=== PATIENT | female | born 1945 | race Caucasian/White ===

== ENCOUNTER 2018-03-03 14:19 | Inpatient (IN) | payer OTHER ==
[2018-03-03] MEDS ORDERED: NS 1,000 ML IV ONE (15:18)
[2018-03-03] MEDS ORDERED: ONDANSETRON 4 MG/2 ML VIAL IVP ONE (15:19)
[2018-03-03] MEDS ORDERED: HYDROmorphONE/DILAUDID 2 MG/ML INJ IVP ONE (15:20)
--- NOTE | 2018-03-03 15:23 | EDPHY ---
H & P Stated Complaint: R abd/side pain; has UTI dx'd yestrday,hasn't started antibx Time Seen by Provider: 03/03/18 14:59 HPI/ROS: CHIEF COMPLAINT: Right inguinal pain and flank pain HISTORY OF PRESENT ILLNESS: Patient is a 72-year-old female comes to the emergency department concerned for a kidney stone. She has had 1 before but does not remember what it felt like. She had a well check with her doctor on Monday and at that time give a urine sample. Her doctor called her back last night and told her that her urine looked infected and called in a prescription. She has not yet picked up that prescription because early this morning she developed severe flank and right lower quadrant pain. She has vomited twice. No diarrhea. She has mild dysuria. She denies hematuria. No vaginal bleeding. No fever. Severity: Moderate Modifying factors: None REVIEW OF SYSTEMS: Constitutional: denies: chills, fever, recent illness, recent injury EENTM: denies: blurred vision, double vision, nose congestion Respiratory: denies: cough, shortness of breath Cardiac: denies: chest pain, irregular heart rate, lightheadedness, palpitations Gastrointestinal/Abdominal: denies: abdominal pain, diarrhea, nausea, vomiting, blood streaked stools Genitourinary: See HPI Musculoskeletal: denies: joint pain, muscle pain Skin: denies: lesions, rash, jaundice, bruising Neurological: denies: headache, numbness, paresthesia, tingling, dizziness, weakness Hematologic/Lymphatic: denies: blood clots, easy bleeding, easy bruising Immunologic/allergic: denies: HIV/AIDS, transplant 10 systems reviewed and negative except as noted EXAM: GENERAL: Well-appearing, well-nourished and in no acute distress. HEAD: Atraumatic, normocephalic. EYES: Pupils equal round and reactive to light, extraocular movements intact, sclera anicteric, conjunctiva are normal. ENT: TMs normal, nares patent, oropharynx clear without exudates. Moist mucous membranes. NECK: Normal range of motion, supple without lymphadenopathy or JVD. LUNGS: Breath sounds clear to auscultation bilaterally and equal. No wheezes rales or rhonchi. HEART: Regular rate and rhythm without murmurs, rubs or gallops. ABDOMEN: Soft, nontender, normoactive bowel sounds. No guarding, no rebound. No masses appreciated. BACK: No CVA tenderness, no spinal tenderness, step-offs or deformities EXTREMITIES: Normal range of motion, no pitting or edema. No clubbing or cyanosis. NEUROLOGICAL: Cranial nerves II through XII grossly intact. Normal speech, normal gait. 5/5 strength, normal movement in all extremities, normal sensation , normal reflexes PSYCH: Normal mood, normal affect. SKIN: Warm, dry, normal turgor, no visible rashes or lesions. Source: Patient Exam Limitations: No limitations - Personal History Current Tetanus Diphtheria and Acellular Pertussis (TDAP): Yes - Medical/Surgical History Hx Asthma: No Hx Chronic Respiratory Disease: No Hx Diabetes: No Hx Cardiac Disease: Yes Hx Renal Disease: No Hx Cirrhosis: No Hx Alcoholism: No Hx HIV/AIDS: No Hx Splenectomy or Spleen Trauma: No Other PMH: HTN, sjogrens. ?kidney stones - Family History Significant Family History: No pertinent family hx - Social History Smoking Status: Former smoker Alcohol Use: Sober Drug Use: None Constitutional: Initial Vital Signs Temperature (C) 36.6 C 03/03/18 14:33 Heart Rate 112 H 03/03/18 14:33 Respiratory Rate 18 03/03/18 14:33 Blood Pressure 129/85 H 03/03/18 14:33 O2 Sat (%) 97 03/03/18 14:33 O2 Delivery Mode Nasal Cannula O2 (L/minute) 2 Allergies/Adverse Reactions: gabapentin Allergy (Intermediate, Verified 03/03/18 14:39) syncope Home Medications: Medication Instructions Recorded ARIPiprazole [Abilify 5 mg (*)] 2.5 mg PO MWF 11/09/15 DULoxetine [Cymbalta 60 MG (*)] 120 mg PO HS 11/09/15 Levothyroxine [Synthroid 50 mcg 50 mcg PO DAILY06 11/09/15 (*)] Calcium Carbonate 600 mg PO DAILY 03/03/18 Candesartan Cilexetil 8 mg PO HS 03/03/18 Carboxymethyl/Glycerin/Poly80 1 drop EACHEYE BID 03/03/18 [Refresh Optive Advanced Drops] Dextroamphetamine Sulfate 20 mg PO QID 03/03/18 Herbals/Supplements -Info Only 1 ea PO DAILY 03/03/18 Hrt (Prog, Estro, Testos) 1 tab PO HS 03/03/18 Minocycline HCl 100 mg PO HS PRN 03/03/18 Multivitamins [Multivitamin (*)] 1 tab PO DAILY 03/03/18 Ocuvite 1 tab PO HS 03/03/18 Zolpidem Tartrate [Ambien] 5 mg PO HS PRN 03/03/18 Medical Decision Making - Diagnostics Imaging Results: Imaging Impressions Abdomen CT 03/03/18 16:41 Impression: 1. Right-sided obstructive uropathy related to an 8 x 4 mm calculus in the proximal right ureter. 2. See above report for additional findings. Results called and discussed with Fernando Ward MD on March 03, 2018 at 1745 hours. Imaging: Discussed imaging studies w/ on call Radiologist ED Course/Re-evaluation: Discussed the case with Dr. Paul Singh who will admit to the medical service. She has a complicated urinary tract infection including a large urinary calculus that is likely obstructive. 6:50 p.m. I discussed the case with Dr. [place] who will consult in the morning. He requests that she be NPO after midnight. Differential Diagnosis: Partial list of the Differential diagnosis considered include but were not limited to; urinary tract infection, kidney stone and although unlikely based on the history and physical exam, I also considered appendicitis, obstruction, ischemia. - Data Points Laboratory Results: Laboratory Results 03/03/18 15:02 03/03/18 15:02 03/03/18 03/03/18 03/03/18 16:20 15:02 15:02 WBC 11.19 10^3/uL H 10^3/uL (3.80-9.50) RBC 4.20 10^6/uL 10^6/uL (4.18-5.33) Hgb 14.9 g/dL g/dL (12.6-16.3) Hct 43.3 % % (38.0-47.0) MCV 103.1 fL H fL (81.5-99.8) MCH 35.5 pg H pg (27.9-34.1) MCHC 34.4 g/dL g/dL (32.4-36.7) RDW 12.2 % % (11.5-15.2) Plt Count 290 10^3/uL 10^3/uL (150-400) MPV 9.4 fL fL (8.7-11.7) Neut % (Auto) 83.1 % H % (39.3-74.2) Lymph % (Auto) 9.5 % L % (15.0-45.0) [place] % (Auto) 6.6 % % (4.5-13.0) Eos % (Auto) 0.1 % L % (0.6-7.6) Baso % (Auto) 0.4 % % (0.3-1.7) Nucleat RBC Rel Count 0.0 % % (0.0-0.2) Absolute Neuts (auto) 9.31 10^3/uL H 10^3/uL (1.70-6.50) Absolute Lymphs (auto) 1.06 10^3/uL 10^3/uL (1.00-3.00) Absolute Monos (auto) 0.74 10^3/uL 10^3/uL (0.30-0.80) Absolute Eos (auto) 0.01 10^3/uL L 10^3/uL (0.03-0.40) Absolute Basos (auto) 0.04 10^3/uL 10^3/uL (0.02-0.10) Absolute Nucleated RBC 0.00 10^3/uL 10^3/uL (0-0.01) Immature Gran % 0.3 % % (0.0-1.1) Immature Gran # 0.03 10^3/uL 10^3/uL (0.00-0.10) Sodium 136 mEq/L mEq/L (135-145) Potassium 4.0 mEq/L mEq/L (3.5-5.2) Chloride 99 mEq/L mEq/L (97-110) Carbon Dioxide 26 mEq/l mEq/l (22-31) Anion Gap 11 mEq/L mEq/L (6-14) BUN 23 mg/dL mg/dL (7-23) Creatinine 1.0 mg/dL mg/dL (0.6-1.0) Estimated GFR 55 Glucose 107 mg/dL H mg/dL (70-100) Calcium 9.5 mg/dL mg/dL (8.5-10.4) Total Bilirubin 0.8 mg/dL mg/dL (0.1-1.4) Conjugated Bilirubin 0.1 mg/dL mg/dL (0.0-0.5) Unconjugated Bilirubin 0.7 mg/dL mg/dL (0.0-1.1) AST 28 IU/L IU/L (14-46) ALT 23 IU/L IU/L (9-52) Alkaline Phosphatase 102 IU/L IU/L (38-126) Total Protein 7.2 g/dL g/dL (6.3-8.2) Albumin 4.2 g/dL g/dL (3.5-5.0) Lipase 48 IU/L IU/L (23-300) Urine Color YELLOW Urine Appearance MODERATELY TURBID Urine pH 5.0 (5.0-7.5) Ur Specific [place] 1.023 (1.002-1.030) Urine Protein NEGATIVE (NEGATIVE) Urine Ketones NEGATIVE (NEGATIVE) Urine Blood NEGATIVE (NEGATIVE) Urine Nitrate NEGATIVE (NEGATIVE) Urine Bilirubin NEGATIVE (NEGATIVE) Urine Urobilinogen 2.0 EU H EU (0.2-1.0) Ur Leukocyte Esterase NEGATIVE (NEGATIVE) Urine RBC 1-3 /hpf /hpf (0-3) Urine WBC 5-10 /hpf H /hpf (0-3) Ur Epithelial Cells 2+ /lpf H /lpf (NONE-1+) Urine Mucus TRACE /lpf /lpf (NONE-1+) Urine Glucose NEGATIVE (NEGATIVE) Medications Given: Discontinued Medications Hydromorphone HCl (Dilaudid) 0.5 mg IVP EDNOW ONE Stop: 03/03/18 15:21 Last Admin: 03/03/18 15:33 Dose: 0.5 mg Sodium Chloride (Ns) 1,000 mls @ 0 mls/hr IV EDNOW ONE; Wide Open PRN Reason: Protocol Stop: 03/03/18 15:19 Last Admin: 03/03/18 15:31 Dose: 1,000 mls Ceftriaxone Sodium/Dextrose (Rocephin 1 Gm (Premix)) 50 mls @ 100 mls/hr IV EDNOW ONE PRN Reason: Protocol Stop: 03/03/18 17:55 Last Admin: 03/03/18 17:54 Dose: 50 mls Ondansetron HCl (Zofran) 4 mg IVP EDNOW ONE Stop: 03/03/18 15:20 Last Admin: 03/03/18 15:32 Dose: 4 mg Departure - Departure Disposition: [facility] Acute Clinical Impression: Kidney stone on right side Urinary tract infection Qualifiers: Urinary tract infection type: acute pyelonephritis Qualified Code(s): N10 - Acute pyelonephritis Condition: Fair
[2018-03-03 15:30] LABS: PLATELET COUNT 290 10^3/uL (150-400)
[2018-03-03] MEDS ORDERED: IOPAMIDOL (ISOVUE-300) 100 ML BTL ONE (16:44)
[2018-03-03] MEDS ORDERED: ACETAMINOPHEN 325 MG TAB PO PRN (19:45)
[2018-03-03] MEDS ORDERED: ONDANSETRON DISINTEGRATING 4 MG TAB PO PRN (19:45)
[2018-03-03] MEDS ORDERED: ONDANSETRON 4 MG/2 ML VIAL IVP PRN (19:45)
[2018-03-03] MEDS ORDERED: MINOCYCLINE HCL 100 MG PO PRN (19:46)
[2018-03-03] MEDS ORDERED: ZOLPIDEM TARTRATE 5 MG PO PRN (19:46)
--- NOTE | 2018-03-03 19:54 | PDCONSULT ---
Intervention Analyst Note: [id number] consult plan stent tomorrow around noon as OR unavailable before then
[2018-03-03] MEDS: HYDROmorphONE/DILAUDID 1 MG/ML INJ IVP PRN (20:23)
[2018-03-03] MEDS: DULoxetine 60 MG CAP PO SCH (20:23)
[2018-03-03] MEDS: oxyCODONE IR 5 MG TAB PO PRN (20:23)
[2018-03-03] MEDS: DEXTROAMPHETAMINE SULFATE 20 MG PO SCH (20:25)
[2018-03-03] MEDS: CARBOXYMETHYLCELLULOSE 1% 0.4 ML DROPERETTE EACHEYE SCH (20:25)
[2018-03-03] MEDS ORDERED: TESTOS PO SCH (21:00)
[2018-03-03] MEDS ORDERED: ESTRO PO SCH (21:00)
[2018-03-03] MEDS ORDERED: HRT PO SCH (21:00)
--- NOTE | 2018-03-03 21:05 | GCON ---
DATE OF CONSULTATION: 03/03/2018 REASON FOR CONSULTATION: Flank pain. HISTORY OF PRESENT ILLNESS: This is a 72-year-old female patient of Dr. Jeronimo, who has a known 8 m m proximal right renal stone. Treatment was recommended, but she deferred. The patient became sympt omatic. CT shows that that stone is now in the proximal ureter. The patient had some signs of cysti tis, but no signs of sepsis. REVIEW OF SYSTEMS: Negative except as noted above. PHYSICAL EXAM: GENERAL: Well appearing, well nourished, no acute distress. HEENT: Head is atrauma tic, normocephalic. Extraocular movements intact. NECK: Supple. LUNGS: Her respiratory effort is unlabored. ABDOMEN: Nondistended. EXTREMITIES: Normal range of motion. PAST MEDICAL/SURGICAL HISTORY: Cardiac disease, hypertension, Sjogren's, kidney stones. She denies asthma, respiratory disease, diabetes, renal disease, cirrhosis, alcoholism, HIV/AIDS. FAMILY HISTORY: Not pertinent. SOCIAL HISTORY: Former smoker. Sober. VITAL SIGNS: Her temperature is 36.6, heart rate 112, respiratory rate 18, blood pressure 129/85. ALLERGIES: Gabapentin. MEDICATIONS: Include Abilify, Cymbalta, Synthroid, calcium carbonate, various herbal products. DIAGNOSTIC STUDIES: CT scan personally reviewed, shows an 8 mm proximal ureteral calculus. Her whit e count is 11.19. Creatinine 1.0. Otherwise, labs mostly are normal. ASSESSMENT: Large proximal stone. PLAN: Cystoscopy and stent insertion with subsequent lithotripsy. This was discussed with the patie nt and her and will be planned for the morning. The patient should be n.p.o. past midnight. /[id number]/MODL
--- NOTE | 2018-03-03 23:21 | GHP ---
DATE OF ADMISSION: 03/03/2018 CHIEF COMPLAINT: Right flank pain. HISTORY OF PRESENT ILLNESS: This is a 72-year-old female, who has a known 8 mm stone in the right ki dney. this was discovered, she had a ureteral tear a couple years ago which was thought t o be a passed kidney stone. She has not had kidney stones prior to that. Last night, she developed right flank pain associated with nausea and vomiting. She has no fevers. She has no dysuria. There was an 8 mm stone with hydronephrosis. She is being admitted for pain control and will get a stenti ng done tomorrow. She does admit to nausea and vomiting. No diarrhea. No diarrhea. No chest pain or shortness of breath. REVIEW OF SYSTEMS: A 10-point review of systems was obtained and otherwise was negative. PAST MEDICAL HISTORY: 1. Sjogren syndrome. 2. Spinal stenosis and chronic low back. 3. Cervical spine surgery. 4. Hypothyroidism. 5. Hypertension. 6. Depression. MEDICATIONS: Reviewed. SOCIAL HISTORY: No smoking or alcohol. FAMILY HISTORY: Does have a family history of kidney stones. PHYSICAL EXAMINATION: VITAL SIGNS: Afebrile, blood pressure is 126/72, heart rate 86, oxygen satura tion 100% on 2 L. GENERAL: The patient is well developed, in no apparent distress. HEEN: Nonicter ic sclerae. Extraocular muscles intact. Moist mucous membranes. NECK: Supple. No thyromegaly. L UNGS: Good effort. Clear to auscultation bilaterally. CARDIOVASCULAR: Regular rate and rhythm. N o murmurs, gallops. ABDOMEN: Positive bowel sounds. Soft, nontender, nondistended. No hepatosplen omegaly. No CVA tenderness. EXTREMITIES: No clubbing, cyanosis, or edema. SKIN: Without rash, dr y, intact. NEUROLOGIC: Alert and oriented x3. Moving all 4 extremities equally. PSYCH: Normal mo od and affect. LABS: Chemistries essentially normal. LFTs are normal. White count is a little bit elevated at 11. UA shows possible urinary tract infection although 5-10 white cells is the only indication. CT sca n shows a 2 mm stone at the proximal right ureter and obstructive uropathy. ASSESSMENT AND PLAN: 1. This is a 72-year-old female, presenting with right obstructive uropathy due to kidney stone. Devin casillas will be admitted and given intravenous fluids. We will start her antibiotics. Urology has see n the patient and will be stented tomorrow. We will continue pain control. Continue antibiotics. 2. Hypertension. Will continue her medication. 3. Depression. We will continue her antidepressants along with her Adderall. /[id number]/MODL
[2018-03-04] MEDS: HYDROmorphONE/DILAUDID 1 MG/ML INJ IVP PRN (02:09)
[2018-03-04 04:48] LABS: PLATELET COUNT 226 10^3/uL (150-400)
[2018-03-04] MEDS: LEVOTHYROXINE 50 MCG TAB PO SCH (05:22)
[2018-03-04] MEDS: DEXTROAMPHETAMINE SULFATE 20 MG PO SCH ×2 (05:24→14:44)
[2018-03-04] MEDS: oxyCODONE IR 5 MG TAB PO PRN ×2 (06:32→09:59)
[2018-03-04] MEDS: NS 1,000 ML IV SCH (06:32)
--- NOTE | 2018-03-04 07:03 | HOSPPROG ---
Hospitalist Progress Note Assessment/Plan: 1. R obstructive uropathy -Dr Prado urology, pending stent/cystoscopy today 2. HTN -home meds 3. Depression -home meds 4. Acute hypoxic respiratory failure -67 on RA, has been on at least 2L since admission (not on O2 at home) -CXR/ABG/EKG ordered -consider echo, re-eval post op 5. Murmur on exam -consider echo, re-eval post op 6. Sjogren's syndrome 7. Hypothyroidism -check TSH 8. Hx back/neck surgeries FULL CODE DVT prophy-lovenox PCP Dr Lange DISPO- likely dc in 24-48 hours if OK post op and resp status stable Subjective: She says she feels well, with her too. Anxious to have surgery and go home. Denies n/v/d/fever. Denies CP/SOB. Objective: Vital Signs Temp Pulse Resp BP Pulse Ox 99.1 F 98 16 106/82 H 90 L 03/04/18 04:00 03/04/18 04:00 03/04/18 04:00 03/04/18 04:00 03/04/18 04:00 Laboratory Results 03/04/18 03:58 03/04/18 03:58 03/02/18 03/03/18 03/04/18 11:59 11:59 11:59 Intake Total 1300 Balance 1300 - Time Spent With Patient Time Spent with Patient: greater than 35 minutes Time Spent with Patient: Greater than 35 minutes spent on this patients care, greater than 50% of time spent counseling, educating, and coordinating care regarding the above mentioned plan. - Physical Exam Constitutional: no apparent distress, appears nourished Eyes: anicteric sclera, EOMI Ears, Nose, Mouth, Throat: moist mucous membranes, hearing normal Cardiovascular: regular rate and rhythym, systolic murmur, No edema Respiratory: no respiratory distress, reduced air movement (throughout) Gastrointestinal: normoactive bowel sounds, No guarding, No rebound, No distension Skin: warm Psychiatric: interacting appropriately, not anxious, not encephalopathic Lymph, Heme, Immunologic: no cervical LAD ICD10 Worksheet Patient Problems: Problems Problem Status Onset Kidney stone on right side Acute Urinary tract infection Acute Altered mental status, unspecified Acute Cervical vertebral fusion Acute
--- NOTE | 2018-03-04 09:47 | PDMN ---
Medical Necessity Medical necessity: MCG M320 Renal Colic and Kidney Stones: 72 yo w/ R flank pain , N/V. Pt has known 8mm stone in R kidney. Further assessment reveals R obstructive uropathy due to stone. Elevated WBC noted. IVF, IV antibx started, Urology consult. Urine cx pending. Plan for urgent stent placement. IV opioids for pain management. Meets IP criteria per MCG for obstruction, IV hydration, infection tx needed. Anticipate>2MN for ongoing monitoring and tx of the above. Hx Sjogren syndrome, HTN, hypothyroidism.
[2018-03-04] MEDS: CARBOXYMETHYLCELLULOSE 1% 0.4 ML DROPERETTE EACHEYE SCH ×2 (09:57→22:32)
--- NOTE | 2018-03-04 11:54 | ASMTCMCOM ---
CM Note CM Note Notes: Plan of care reviewed in rounds. Generally healthy 72 year old female admitted via ED with c/o pain was found to have 8mm stone lodged in proximal right ureter. Plan is for cystoscopy, stone removal voa lithotripsy with stent. Plan: Likely to discharge home independently when medically ready for transport. Date Signed: 03/04/2018 11:53 AM Electronically Signed By:Yvonne Sepulveda RN
[2018-03-04] MEDS ORDERED: LIDOCAINE 2% JELLY 20 ML (UROJECT) ONE (14:42)
[2018-03-04] MEDS ORDERED: IOPAMIDOL (ISOVUE-300) 150 ML BTL ONE (14:43)
[2018-03-04] MEDS ORDERED: PROPOFOL/EMULSION 500 MG/50 ML BOTTLE IV ONE (15:02)
[2018-03-04] MEDS ORDERED: MIDAZOLAM 2 MG/2 ML VIAL ONE (15:06)
--- NOTE | 2018-03-04 15:08 | CPEKG ---
Test Reason : OPEN Blood Pressure : / mmHG Vent. Rate : 092 BPM Atrial Rate : 092 BPM P-R Int : 175 ms QRS Dur : 095 ms QT Int : 355 ms P-R-T Axes : 028 001 021 degrees QTc Int : 440 ms Sinus rhythm Confirmed by Alfredo Mackay ([id number]) on 03/04/2018 3:07:29 PM Referred By: Confirmed By:Alfredo Mackay
[2018-03-04] MEDS ORDERED: fentaNYL 100 MCG/2 ML INJ ONE (15:10)
--- NOTE | 2018-03-04 15:23 | PDANEPAE ---
ANE History of Present Illness 72 year old female for ureteral stent right side. History of HTN, depression, ADHD. Recent hypoxemia, sat 88-89% on 5 liters. ANE Past Medical History - Cardiovascular History Hx Hypertension: Yes Hx Arrhythmias: No Hx Chest Pain: No Hx Coronary Artery / Peripheral Vascular Disease: No Hx CHF / Valvular Disease: No Hx Palpitations: No Cardiovascular History Comment: PCP MANAGES HTN - Pulmonary History Hx COPD: No Hx Asthma/Reactive Airway Disease: No Hx Recent Upper Respiratory Infection: No Hx Oxygen in Use at Home: No Hx Sleep Apnea: No Sleep Apnea Screening Result - Last Documented: Negative - Neurologic History Hx Cerebrovascular Accident: No Hx Seizures: No Hx Dementia: No Neurologic History Comment: cervical and lumbar stenosis- occ N and T in fingers ;low back pain, bilat buttock,bilat legs.Left leg aches (to ankle). - Endocrine History Hx Diabetes: No Endocrine History Comment: HYPOTHYROIDISM. SHOJREN'S DISEASE - Renal History Hx Renal Disorders: Yes Renal History Comment: HX OF TORN URETER AND LITHOTRIPSY 11/2012. BLADDER SLING SURGERY - Liver History Hx Hepatic Disorders: No - Neurological & Psychiatric Hx Hx Neurological and Psychiatric Disorders: Yes Neurological / Psychiatric History Comment: DEPRESSION. FATIGUE. ADD - Cancer History Hx Cancer: No - Congenital Disorder History Hx Congenital Disorders: No - GI History Hx Gastrointestinal Disorders: Yes Gastrointestinal History Comment: CONSTIPATION. CURRENT NODULE ON STOMACH THAT' S WHY WE'RE DOING EGD/EUS - Other Health History Other Health History: 2012-sepsis with torn ureter. - Chronic Pain History Chronic Pain: No - Surgical History Prior Surgeries: EGD, EUS WITH DR MORRELL 01/30/2012,-;Laparoscopic excision of stomach mass;. CATARACTS BILATERALLY 2010. TORN URETER REPAIR 11/2012. LITHOTRIPSY FOR KIDNEY STONE 11/2012. 10/2013 BLADDER SLING WITH MESH. LEFT HAND TRIGGER FINGER SURGERY ANE Review of Systems Review of systems is: negative (current hypoxia) Review of Systems: ANE Patient History - Allergies Allergies/Adverse Reactions: gabapentin Allergy (Intermediate, Verified 03/03/18 14:39) syncope - Home Medications Home Medications: ARIPiprazole [Abilify 5 mg (*)] 2.5 mg PO MWF 11/09/15 [Last Taken 03/02/18 08: 00] DULoxetine [Cymbalta 60 MG (*)] 120 mg PO HS 11/09/15 [Last Taken 03/01/18] Levothyroxine [Synthroid 50 mcg (*)] 50 mcg PO DAILY06 11/09/15 [Last Taken 10/11 08:00] Calcium Carbonate 600 mg PO DAILY 03/03/18 [Last Taken 03/02/18 08:00] Candesartan Cilexetil 8 mg PO HS 03/03/18 [Last Taken 03/01/18] Carboxymethyl/Glycerin/Poly80 [Refresh Optive Advanced Drops] 1 drop EACHEYE BID 03/03/18 [Last Taken 03/02/18] Dextroamphetamine Sulfate 20 mg PO QID 03/03/18 [Last Taken 03/02/18 16:00] Herbals/Supplements -Info Only 1 ea PO DAILY 03/03/18 [Last Taken Unknown] Hrt (Prog, Estro, Testos) 1 tab PO HS 03/03/18 [Last Taken 03/01/18] Minocycline HCl 100 mg PO HS PRN 03/03/18 [Last Taken 03/02/18 21:00] Multivitamins [Multivitamin (*)] 1 tab PO DAILY 03/03/18 [Last Taken 03/02/18 08 :00] Ocuvite 1 tab PO HS 03/03/18 [Last Taken 03/02/18 08:00] Zolpidem Tartrate [Ambien] 5 mg PO HS PRN 03/03/18 [Last Taken 03/02/18 21:00] - NPO status NPO Since - Liquids (Date): 03/03/18 NPO Since - Liquids (Time): 23:55 NPO Since - Solids (Date): 03/03/18 NPO Since - Solids (Time): 23:55 - Smoking Hx Smoking Status: Former smoker - Alcohol Use Alcohol Use: Sober - Family Anes Hx Family Hx Anesthesia Complications: NONE ANE Labs/Vital Signs - Labs Result Diagrams: 03/04/18 03:58 03/04/18 03:58 - Vital Signs Blood Pressure: 111/66 Heart Rate: 91 Respiratory Rate: 16 O2 Sat (%): 89 Height: 152.4 cm Weight: 61.235 kg ANE Physical Exam - Airway Neck exam: decreased ROM Mallampati Score: Class 2 Mouth exam: normal dental/mouth exam - Pulmonary Pulmonary: reduced air movement - Cardiovascular Cardiovascular: regular rate and rhythym - ASA Status ASA Status: III, E ANE Anesthesia Plan Anesthesia Plan: MAC (hypoxia with unknown etiology.)
[2018-03-04] MEDS ORDERED: NALOXONE HCL 0.4 MG/ML INJ IVP PRN (15:24)
[2018-03-04] MEDS ORDERED: ALBUTEROL 3 ML DEYVIAL IH PRN (15:24)
[2018-03-04] MEDS ORDERED: fentaNYL 100 MCG/2 ML INJ IVP PRN (15:24)
--- NOTE | 2018-03-04 15:42 | POSTOPPROG ---
Post Op Note Date of Operation: 03/04/18 Surgeon: Catrachito Prado Pre-op Diagnosis: stone Post-op Diagnosis: stone andsall bladder tumor Procedure: stoe manip, stet and bladder biopsy Inf/Abcess present in the surg proc area at time of surgery?: No
--- NOTE | 2018-03-04 16:50 | POSTANESTH ---
Post Anesthetic Evaluation Cardiovascular Status: Normal, Stable Respiratory Status: Similar to Pre-op Cond. Level of Consciousness/Mental Status: Mildly Sleepy, Arousable Pain Control: Adequate, Prn Tx Ordered Nausea/Vomiting Control: Adequate, Prn Tx Ordered Complications Possibly Related to Anesthesia: None Noted (Pataient with preop hypoxia. Unchanged after surgery. Hospitalist to evaluate.)
--- NOTE | 2018-03-04 17:01 | GOP ---
DATE OF OPERATION: 03/04/2018 SURGEON: Mukul Prado MD ANESTHESIA: Sedation. PREOPERATIVE DIAGNOSIS: Large proximal right ureteral calculus. POSTOPERATIVE DIAGNOSIS: Large proximal right ureteral calculus and small papillary bladder tumor. PROCEDURE PERFORMED: Cystoscopy, right ureteral stone manipulation, right ureteral stent insertion - 6-Djiboutian 22 cm. Also, cystoscopy, bladder biopsy, and fulguration of bladder tumor. FINDINGS: ESTIMATED BLOOD LOSS: Minimal. DESCRIPTION OF PROCEDURE: Patient was taken to the operating room, sedated, placed in the dorsal lit hotomy position, prepped and draped in a sterile fashion. The 22-Djib[place]ian cystoscope with a 30-degree lens was inserted through the patient's urethra into the patient's bladder. A small papillary bladde r tumor was noted near the patient's right ureteral orifice. A Sensor wire was inserted into the grant fice up to the level of the stone, and just around the stone, a significant amount of cellular debris came out around the wire. An open-ended stent was placed over the wire at the level of the stone, w hich was radiodense on fluoroscopy, and the stone was then flushed with saline proximal by a few cent imeters. The wire was reinserted through the open-ended stent and placed in the right renal pelvis by fluorosc opy. The open-ended stent was removed and exchanged for a 6-Djibout[place] 22 cm long double-J stent. This was curled in the patient's right renal pelvis by fluoroscopy and seen to curl in the bladder by dire ct vision. Cold cup biopsies were then inserted through the scope to the bladder tumor. The bladder tumor was t hen biopsied and sent for pathologic review. The base was thoroughly fulgurated. Caceres catheter was inserted. The effluent was clear. The patient was returned to the supine position, and at the time of this dictation, was being transferred to the recovery room. COMPLICATIONS: None. DRAINS: Right-sided 6-Djiboutian 22 cm stent and Caceres catheter. /[id number]/MODL
[2018-03-04] MEDS ORDERED: LORazepam 1 MG TAB PO PRN (17:12)
[2018-03-04] MEDS ORDERED: FLUMAZENIL 0.5 MG/5 ML MDV IVP PRN (17:12)
[2018-03-04] MEDS: LORazepam 2 MG/ML INJ IVP PRN ×2 (17:47→23:27)
[2018-03-04] MEDS ORDERED: NS 500 ML IV ONE (18:30)
[2018-03-04] MEDS: DEXTROAMPHETAMINE SULFATE PO SCH ×2 (19:05→22:32)
[2018-03-04] MEDS: THIAMINE HCL 500 MG in NS 100 ML IV SCH (20:53)
[2018-03-04] MEDS: FOLIC ACID 1 MG TAB PO SCH (21:00)
[2018-03-04] MEDS: DULoxetine 60 MG CAP PO SCH (21:00)
[2018-03-04] MEDS: HRT PO SCH (22:31)
[2018-03-04] MEDS: TESTOS PO SCH (22:31)
[2018-03-04] MEDS: ESTRO PO SCH (22:31)
[2018-03-05] MEDS: NS 1,000 ML IV SCH (05:11)
[2018-03-05] MEDS: LEVOTHYROXINE 50 MCG TAB PO SCH (06:34)
[2018-03-05] MEDS: DEXTROAMPHETAMINE SULFATE PO SCH ×4 (06:35→20:29)
[2018-03-05] MEDS: ARIPiprazole 5 MG TAB PO SCH (08:15)
[2018-03-05] MEDS: THIAMINE HCL 500 MG in NS 100 ML IV SCH (08:15)
[2018-03-05] MEDS: FOLIC ACID 1 MG TAB PO SCH (08:16)
[2018-03-05] MEDS ORDERED: ZOLPIDEM TARTRATE 5 MG TAB PO PRN (08:30)
[2018-03-05] MEDS ORDERED: MINOCYCLINE HCL 50 MG CAP PO PRN (08:30)
[2018-03-05] MEDS: LORazepam 2 MG/ML INJ IVP PRN ×3 (08:32→23:56)
[2018-03-05] MEDS ORDERED: PNEUMOC 13-VAL CONJ-DIP CRM/PF 0.5 ML SYR (PREVNAR 13) IM ONE (08:54)
[2018-03-05] MEDS: CARBOXYMETHYLCELLULOSE 1% 0.4 ML DROPERETTE EACHEYE SCH ×2 (09:19→20:27)
[2018-03-05] MEDS ORDERED: FUROSEMIDE 20 MG/2 ML VIAL IVP ONE (13:03)
--- NOTE | 2018-03-05 13:10 | HOSPPROG ---
Hospitalist Progress Note Assessment/Plan: 1. obstructive Uropathy- underwent cystoscopy and stent placement today with urology. Had an 8mm stone in the proximal right ureter. -rocephin -urology consultation -monitor cultures for abx Acute hypoxic respiratory failure- has had progressively increased oxygen requirement in the last 24 hours. CXR today showing bilateral infiltrates consistent with pulmonary edema. Holding fluids, and giving a dose of lasix 20mg IV. Etoh abuse- insists patient only has two drinks per day but concern that she is withdrawing. On ciwa protocol. told nurse to use caution wiht ativan given her respiratory status. HTN- on candesartan. Will hold in setting of fluid overload and diuresis. Giving lasix. Depression- on cymbalta. cont Sjogren's syndrome- expectant management. Hypothyroidism-TSH mildly low, will check T4, continue current synthroid dose for now. Hx back/neck surgeries- PRN pain medications. Objective: Vital Signs Temp Pulse Resp BP Pulse Ox 36.4 C 89 16 148/96 H 94 03/05/18 08:00 03/05/18 08:00 03/05/18 08:00 03/05/18 08:00 03/05/18 08:00 Laboratory Results 03/05/18 04:20 03/05/18 04:20 03/04/18 03/05/18 03/06/18 05:59 05:59 05:59 Intake Total 200 3983 Output Total 910 Balance 200 3073 - Physical Exam Constitutional: no apparent distress, other (lethargic) Eyes: PERRL, anicteric sclera, EOMI Ears, Nose, Mouth, Throat: moist mucous membranes, hearing normal, ears appear normal, no oral mucosal ulcers Cardiovascular: regular rate and rhythym, no murmur, rub, or gallop Respiratory: inspiratory crackles (crackles at bases bilaterally, with poor inspiratory effort) Gastrointestinal: normoactive bowel sounds, soft, non-tender abdomen, no palpable masses Genitourinary: salcedo in urethra Skin: no rashes or abrasions, no fluctuance, no induration Musculoskeletal: full muscle strength, no muscle tenderness, normal joint ROM Neurologic: AAOx3, sensation intact bilaterally Psychiatric: interacting appropriately, not anxious, not encephalopathic, thought process linear Lymph, Heme, Immunologic: no cervical LAD, no supraclavicular LAD ICD10 Worksheet Patient Problems: Problems Problem Status Onset Kidney stone on right side Acute Urinary tract infection Acute Altered mental status, unspecified Acute Cervical vertebral fusion Acute
[2018-03-05] MEDS: oxyCODONE IR 5 MG TAB PO PRN ×2 (13:17→20:27)
[2018-03-05] MEDS: CANDESARTAN CILEXETIL 8 MG TAB PO SCH (20:26)
[2018-03-05] MEDS: PRESERVISION AREDS2 FORMULA EYE VIT 1 EACH PO SCH (20:26)
[2018-03-05] MEDS: DULoxetine 60 MG CAP PO SCH (20:26)
[2018-03-05] MEDS: HRT PO SCH (21:12)
[2018-03-05] MEDS: TESTOS PO SCH (21:12)
[2018-03-05] MEDS: ESTRO PO SCH (21:12)
[2018-03-06] MEDS: LORazepam 2 MG/ML INJ IVP PRN ×2 (03:38→04:52)
[2018-03-06] MEDS: LEVOTHYROXINE 50 MCG TAB PO SCH (04:50)
[2018-03-06] MEDS: DEXTROAMPHETAMINE SULFATE PO SCH ×4 (04:55→20:53)
[2018-03-06] MEDS: FOLIC ACID 1 MG TAB PO SCH (08:11)
[2018-03-06] MEDS: THIAMINE HCL 500 MG in NS 100 ML IV SCH (08:11)
[2018-03-06] MEDS: CARBOXYMETHYLCELLULOSE 1% 0.4 ML DROPERETTE EACHEYE SCH ×2 (08:20→21:14)
[2018-03-06] MEDS: oxyCODONE IR 5 MG TAB PO PRN (10:40)
[2018-03-06] MEDS: FUROSEMIDE 20 MG/2 ML VIAL IVP SCH ×2 (11:01→14:56)
[2018-03-06] MEDS: IBUPROFEN 600 MG TAB PO PRN (13:47)
--- NOTE | 2018-03-06 16:34 | HOSPPROG ---
Hospitalist Progress Note Assessment/Plan: 72yo F with HTN, depression presented with right flank pain found to have 8mm obstructing kidney stone. 1. Acute right sided obstructive uropathy: S/p ureteral stent placement 03/05 - Urine cultures with normal jax but will continue CTX given high risk of infection - Urology following - Monitor renal function, currently at baseline 2. Acute hypoxemic respiratory insufficiency: Due to pulmonary edema. No prior cardiac issues, query negative pressure pulm edema. - Improving with diuresis, will continue IV lasix 20mg BID today 3. Acute metabolic encephalopathy: Due to etoh withdrawal and oss 4. EtOH withdrawal: Consistently drinks [id number] "stiff" drinks/night per . Still actively withdrawing. - Continue CIWA 5. Macrocytosis: Likely due to etoh. 6. Hypothyroidism: TSH low but free T4 normal, free T3 slightly low. Continue home synthroid dose, needs outpt follow up. 7. HTN: Home candesartan. 8. Depression: Home meds. 9. Sjogren's syndrome VTE ppx: SCDs Diet: regular Dispo: Remain inpatient Subjective: Agitated overnight, high CIWA scores. More oriented this AM but falls asleep easily. Shaky. Pain better. No fevers. Still with salcedo Objective: Vital Signs Temp Pulse Resp BP Pulse Ox 36.6 C 93 16 124/81 H 97 03/06/18 16:00 03/06/18 16:00 03/06/18 16:00 03/06/18 16:00 03/06/18 16:00 Laboratory Results 03/05/18 04:20 03/05/18 04:20 03/05/18 03/06/18 03/07/18 05:59 05:59 05:59 Intake Total 3983 1400 Output Total 910 3025 Balance 3073 -1625 - Physical Exam Constitutional: not in pain, other (diaphoretic) Eyes: PERRL, anicteric sclera, EOMI Ears, Nose, Mouth, Throat: moist mucous membranes, hearing normal, ears appear normal, no oral mucosal ulcers Cardiovascular: no murmur, rub, or gallop, tachycardia, No edema Respiratory: reduced air movement (bilateral bases), inspiratory crackles Gastrointestinal: normoactive bowel sounds, soft, non-tender abdomen, no palpable masses Genitourinary: no bladder fullness, no bladder tenderness, no renal bruits, salcedo in urethra Skin: no rashes or abrasions, no fluctuance, no induration Musculoskeletal: full muscle strength, no muscle tenderness, normal joint ROM Neurologic: other (intermittently disoriented to situation and time, mild bilateral hand tremor), No weakness Psychiatric: interacting appropriately, not anxious, not encephalopathic, thought process linear ICD10 Worksheet Patient Problems: Problems Problem Status Onset Kidney stone on right side Acute Urinary tract infection Acute Altered mental status, unspecified Acute Cervical vertebral fusion Acute
[2018-03-06] MEDS: CANDESARTAN CILEXETIL 8 MG TAB PO SCH (21:13)
[2018-03-06] MEDS: PRESERVISION AREDS2 FORMULA EYE VIT 1 EACH PO SCH (21:14)
[2018-03-06] MEDS: DULoxetine 60 MG CAP PO SCH (21:14)
[2018-03-06] MEDS: TESTOS PO SCH (21:15)
[2018-03-06] MEDS: ESTRO PO SCH (21:15)
[2018-03-06] MEDS: HRT PO SCH (21:15)
[2018-03-07] MEDS: DEXTROAMPHETAMINE SULFATE PO SCH ×3 (04:17→16:02)
[2018-03-07] MEDS: LEVOTHYROXINE 50 MCG TAB PO SCH (04:19)
[2018-03-07] MEDS: IBUPROFEN 600 MG TAB PO PRN (04:19)
[2018-03-07] MEDS: FOLIC ACID 1 MG TAB PO SCH (09:04)
[2018-03-07] MEDS: ARIPiprazole 5 MG TAB PO SCH (09:04)
[2018-03-07] MEDS: THIAMINE HCL 100 MG TAB PO SCH (09:04)
[2018-03-07] MEDS: CARBOXYMETHYLCELLULOSE 1% 0.4 ML DROPERETTE EACHEYE SCH ×2 (09:07→21:26)
[2018-03-07] MEDS: FUROSEMIDE 20 MG/2 ML VIAL IVP SCH (09:07)
--- NOTE | 2018-03-07 14:15 | ASMTCMCOM ---
CM Note CM Note Notes: Plan of care reviewed in am rounds. 72 year old female s/p UTI and lithotripsy with stent developed encephalopathic symptoms likely form ETOH withdrawal. Per therapies SNF rehab recommended for strengthening prior to going home. Met with the patient and her who live in [place]. I have placed referrals to [facility] as well as [facility] in [place] per their request and I have encouraged family to visit facilities. CM to follow. Plan: To SNF rehab when medically cleared for discharge. Date Signed: 03/07/2018 02:15 PM Electronically Signed By:Yvonne Sepulveda RN
--- NOTE | 2018-03-07 16:02 | HOSPPROG ---
Hospitalist Progress Note Assessment/Plan: 72yo F with HTN, depression presented with right flank pain found to have 8mm obstructing kidney stone. 1. Acute right sided obstructive uropathy: S/p ureteral stent placement 03/05 - Urine cultures with normal jax but will continue CTX (day 4) given high risk of infection - Urology following - Monitor renal function, currently at baseline 2. Acute hypoxemic respiratory insufficiency: Resolved. Due to pulmonary edema. Query negative pressure pulm edema. - Stop lasix today, remove salcedo catheter 3. Acute metabolic encephalopathy: Resolved. Due to etoh withdrawal. 4. EtOH withdrawal: This is finishing up. Consistently drinks [id number] "stiff " drinks/night per . - Continue CIWA 5. Macrocytosis: Likely due to etoh. 6. Hypothyroidism: TSH low but free T4 normal, free T3 slightly low. Continue home synthroid dose, needs outpt follow up. 7. HTN: Home candesartan. 8. Depression: Home meds. 9. Sjogren's syndrome VTE ppx: SCDs Diet: regular Dispo: Remain inpatient, unsafe to dc. Plan to dc to SNF, likely tomorrow Subjective: Feeling much better today. Minimal pain. Wants salcedo out. Breathing better. No fevers Objective: Vital Signs Temp Pulse Resp BP Pulse Ox 36.6 C 102 H 16 124/68 H 91 L 03/07/18 12:47 03/07/18 12:47 03/07/18 12:47 03/07/18 12:47 03/07/18 12:47 Laboratory Results 03/07/18 04:59 03/07/18 04:59 03/06/18 03/07/18 03/08/18 05:59 05:59 05:59 Intake Total 1400 1700 Output Total 3025 2150 750 Balance -9011 -385 -750 - Physical Exam Constitutional: no apparent distress, appears nourished, not in pain Eyes: PERRL, anicteric sclera, EOMI Ears, Nose, Mouth, Throat: moist mucous membranes, hearing normal, ears appear normal, no oral mucosal ulcers Cardiovascular: regular rate and rhythym, no murmur, rub, or gallop, No edema Respiratory: no respiratory distress, no rales or rhonchi, clear to auscultation Gastrointestinal: normoactive bowel sounds, soft, non-tender abdomen, no palpable masses Genitourinary: salcedo in urethra Skin: no rashes or abrasions, no fluctuance, no induration Musculoskeletal: full muscle strength, no muscle tenderness, normal joint ROM Neurologic: AAOx3, sensation intact bilaterally, other (mildly tremulous) Psychiatric: interacting appropriately, not anxious, not encephalopathic, thought process linear ICD10 Worksheet Patient Problems: Problems Problem Status Onset Kidney stone on right side Acute Urinary tract infection Acute Altered mental status, unspecified Acute Cervical vertebral fusion Acute
[2018-03-07] MEDS: DULoxetine 60 MG CAP PO SCH (20:57)
[2018-03-07] MEDS: PRESERVISION AREDS2 FORMULA EYE VIT 1 EACH PO SCH (20:57)
[2018-03-07] MEDS: CANDESARTAN CILEXETIL 8 MG TAB PO SCH (20:57)
[2018-03-07] MEDS: DEXTROAMPHETAMINE SULFATE 10 MG PO SCH (21:23)
[2018-03-07] MEDS: HRT PO SCH (21:23)
[2018-03-07] MEDS: TESTOS PO SCH (21:23)
[2018-03-07] MEDS: ESTRO PO SCH (21:23)
[2018-03-08] MEDS: LEVOTHYROXINE 50 MCG TAB PO SCH (07:28)
[2018-03-08] MEDS: CARBOXYMETHYLCELLULOSE 1% 0.4 ML DROPERETTE EACHEYE SCH (09:12)
[2018-03-08] MEDS: FOLIC ACID 1 MG TAB PO SCH (09:12)
[2018-03-08] MEDS: THIAMINE HCL 100 MG TAB PO SCH (09:12)
[2018-03-08] MEDS: DEXTROAMPHETAMINE SULFATE 10 MG PO SCH ×2 (09:56→15:53)
--- NOTE | 2018-03-08 14:31 | PDIAF ---
- Diagnosis Code Status: Full Code - Medication Management Additional Medication Instructions: Take pyridium three times daily for the next 2 days. Discharge Medications: electronically signed and located in the Home Medication List. PICC Care - Routine: N/A - Orders Services needed: Physical Therapy, Occupational Therapy Isolation Type: None Diet Recommendation: no restrictions on diet Additional Instructions: You have completed your antibiotics for your urinary infection. You are still having some urinary symptoms, which are likely related to the catheter you had. I have written for you to take pyridium to help with these symptoms. Otherwise, no medication changes. You are going to rehab to help you get stronger. - Follow Up Care Current Providers and Referrals: JERRICA MAZARIEGOS [Primary Care Provider] - As per Instructions
--- NOTE | 2018-03-08 14:33 | PDDCSUM ---
Discharge Summary Discharge Summary: Date of Admission: 03/03/2018 Date of Discharge: 03/07/2018 Consultants: urology (Dr Prado) Disposition: SNF Procedures/Studies: 1. CT abdomen w/o contrast: right sided obstructive uropathy related to 8x4mm calculus in the proximal right ureter 2. Cystoscopy, right ureteral stone manipulation, right ureteral stent placement (6 Fr, 22cm) 3. Bladder biopsy and fulguration of bladder tumor. Pathology showing papillary urothelial neoplasm of low malignant potential, noninvasive. Discharge Diagnoses: 1. Acute right sided obstructive uropathy, resolved 2. Right ureteral calculus s/p stent placement 3. Acute metabolic encephalopathy, resolved 4. Acute hypoxemic respiratory insufficiency 2/2 pulmonary edema, resolved 5. Alcohol abuse and withdrawal, resolved 6. Papillary urothelial neoplasm of bladder 7. Macrocytosis 8. Hypothyroidism 9. HTN 10. Depression Brief Hospital Course: 72yo F with HTN, depression presented with right flank pain found to have 8mm obstructing kidney stone and HAWK. She underwent stent placement with urology and will need to follow up with them for lithotripsy as outpatient. She did complete a course of antibiotics with ceftriaxone although urine cultures were negative. Her salcedo catheter was removed 03/07. She is having some mild irritative symptoms and I have written for pyridium. Notably, she did go through alcohol withdrawal and was encephalopathic related to this. She was managed on CIWA protocol and not requiring benzodiazepines at discharge. We did primary substance abuse counselor her on decreasing her etoh intake although she seems reluctant. She was quite deconditioned and PT/OT were recommending SNF which she was agreeable to. She did have some pulmonary edema after her procedure and this resolved with diuresis. She is breathing well on room air. Lastly, a bladder mass was noted on cystoscopy. This was biopsied which showed a papillary neoplasm of bladder with low malignant potential. She should follow up re: this with urology. Medications: Please refer to EMR for complete list. I added pyridium for the next 2 days. Follow Up Plan: 1. Recommend following up with primary care doctor after rehab to discuss etoh cessation 2. Follow up with urology for lithotripsy and to discuss bladder neoplasm Physical Exam: Vitals reviewed, mild tachycardia, normotensive. Alert and oriented, no tremor or tongue fasciculations. RRR without m/r/g, lungs clear, abdomen soft, no leg edema, no rashes.
--- NOTE | 2018-03-08 15:10 | ASMTLACE ---
[facility] Length of stay for Answers: 4-6 days current admission Acuity / Level of Answers: Yes Care: Did the patient have an inpatient admission? Comorbidities - select Answers: Opioid dependence all that apply / Chronic pain Other Notes: HTN; Spintal stenosis; HTN # of Emergency department Answers: 1-2 visits in the last 6 months Social determinants Answers: Mental health diagnosis (anxiety, depression, pers onality disorders, etc.) Score: 16 Date Signed: 03/08/2018 03:09 PM Electronically Signed By:Yvonne Sepulveda RN
--- NOTE | 2018-03-08 15:12 | ASMTDCNOTE ---
Case Management Discharge Discharge Order Complete? Answers: Yes Patient to Obtain Answers: Other Medications Transportation Arranged Answers: Other Notes: wheel chair van Family Notified Answers: Yes Discharge Comments Notes: Patient medically cleared for discharge to SNF. [facility] in [place] to provide wheelchair transportation. Date Signed: 03/08/2018 03:12 PM Electronically Signed By:Yvonne Sepulveda RN
[2018-03-08 15:47] VITALS: BP 149/94
[2018-03-08] MEDS: IBUPROFEN 600 MG TAB PO PRN (15:52)
== END 2018-03-08 16:40 | DRG 659 ==
LOC: F1N 18:44 → OBSVTOIN 19:47 → F1N 03-06 18:20
PROVIDERS: ADMIT Internal Medicine; ATTEND Internal Medicine
DX: N20.1 Calculus of ureter (principal); G93.41 Metabolic encephalopathy; J81.0 Acute pulmonary edema; N17.9 Acute kidney failure, unspecified; F10.239 Alcohol dependence with withdrawal, unspecified; N13.8 Other obstructive and reflux uropathy; E86.9 Volume depletion, unspecified; R06.89 Other abnormalities of breathing; R09.02 Hypoxemia; D41.4 Neoplasm of uncertain behavior of bladder; D75.89 Other specified diseases of blood and blood-forming organs; E03.9 Hypothyroidism, unspecified; I10 Essential (primary) hypertension; F32.9 Major depressive disorder, single episode, unspecified; M35.00 Sjogren syndrome, unspecified; Z23 Encounter for immunization
CPT/HCPCS: 84481-90; 96365; 97110-GP; 97116-GP; 97162-GP; 97166-GO; 97530-GP; 97535-GO; C1758; C1769; C2617; G0008; G0009; G8978-GP-CM; G8979-GP-CK; G8987-GO-CK; G8988-GO-CI; J0696; J1170; J1940; J2060; J2250; J2405; J2704; J3010; J3411; Q9967